=== PATIENT | female | born 1990 ===

== ENCOUNTER → 2023-09-15 | Outpatient (CLI) | payer OTHER ==
[2023-09-15 14:45] LABS: Candida Group, PCR NOT DETECTED (NOT DETECT); Candida glabrata-krusei, PCR NOT DETECTED (NOT DETECT)
[2023-09-15 14:46] LABS: Bacterial Vaginosis PCR Positive (NEGATIVE)
== END ==
LOC: LAB 11:10 → LAB SHORT 11:10
PROVIDERS: Physician Assistant Medical
DX: L29.2 Pruritus vulvae (principal)
CPT/HCPCS: 87481; 87661; 87801

== ENCOUNTER → 2025-02-16 | Outpatient (CLI) | payer OTHER ==
[2025-02-16 12:58] LABS: Bacterial Vaginosis PCR Negative (NEGATIVE); Candida Group, PCR NOT DETECTED (NOT DETECT); Candida glabrata-krusei, PCR NOT DETECTED (NOT DETECT)
== END | disposition home or self-care (01) ==
LOC: LAB SHORT 09:42 → LAB 09:42
PROVIDERS: Obstetrics & Gynecology
DX: Z01.419 Encounter for gynecological examination (general) (routine) without abnormal findings (principal); N76.0 Acute vaginitis
CPT/HCPCS: 81515; 87624; G0145